=== PATIENT | male | born 1965 | race Caucasian/White ===

== ENCOUNTER 2020-02-19 13:49 | Emergency (ER) | payer BC ==
[~2020-02-19] VITALS: Ht 172.7 cm; Wt 72.6 kg
[2020-02-19 14:00] VITALS: BP 109/70
--- NOTE | 2020-02-19 14:11 | NUR ---
Patient discharged to home in stable condition. Written and verbal after care instructions given. Patient verbalizes understanding of instruction.
== END 2020-02-19 14:13 | disposition home or self-care (01) ==
LOC: ER 13:51
DX: J45.909 Unspecified asthma, uncomplicated (principal); Z91.010 Allergy to peanuts